=== PATIENT | female | born 1930 | race Caucasian/White ===

== ENCOUNTER 2017-02-21 05:46 | Day surgery (SDC) | payer MEDICARE, OTHER ==
[~2017-02-21 05:46] MED LIST: *CPAP; CARVEDILOL25 M1 PO; CPAP; ELIQUIS2.5 M1 PO; ENALAPRIL MALEA10 M1 PO; FEOSOL325 M1 PO; FISH OIL 11000 MG/CA PO; FOLIC ACID1 M1 PO; FOSAMAX70 M1 PO; FUROSEMIDE40 M2 PO; GABAPENTIN600 M2 PO; GLYBURIDE5 M1 PO; HYDROCODON-ACE1 EA16 PO; LIDODERM1 EACH TP; LINZESS145 MC1 PO; LOVASTATIN40 M2 PO; METFORMIN HCL500 M2 PO; METHOTREXATE2.5 M1 PO; NORCO 10-325 T1 EACH PO; NYSTATIN1 EA10 TP; ONGLYZA5 M1 PO; ORENCIA IV; OS-CAL 500+D31 EAC1 PO; PLAQUENIL200 M1 PO; PROZAC20 M3 PO; VITAMIN B12 PO; VITAMIN D31000 UNI4 PO; [UNRECOGNIZED DRUG - OTHER] PO
--- NOTE | 2017-02-21 18:50 | NUR ---
VIRTUAL CARE NOTE: PT. UP IN HER CHAIR, PLAYING CARDS WITH HER DAUGHTER. DENIES PAIN ATT HIS TIME. ENCOURAGED TO KEEP USING I.S. WHEN ABLE. ALSO INSTRUCTED TO CALL FOR STAFF WHEN NEED TO GET OUT OF BED OR CHAIR DUE TO SCD BEING CONNECTED. DENIES FURTHER NEEDS AT THIS TIME AND VOICES VERBAL UNDERSTANDING.
[2017-02-22] MEDS ORDERED: ACETAMINOPHEN650 MG PR (09:25)
[2017-02-22] MEDS ORDERED: TYLENOL EXTRA500 M1 PO (09:26)
[2017-02-22] MEDS ORDERED: MILK OF MAGNESIA PO (09:28)
== END 2017-02-22 11:25 ==
LOC: SRG 05:46 → SHSB 05:47 → ORW 09:53 → PACU 10:31 → 5WD 12:35
PROVIDERS: Hospitalist
PROC: 0HBU0ZZ Excision of Left Breast, Open Approach (ICD-10-PCS; principal; 2017-02-21)
PROC: 07B60ZX Excision of Left Axillary Lymphatic, Open Approach, Diagnostic (ICD-10-PCS; 2017-02-21)
DX: C50.212 Malignant neoplasm of upper-inner quadrant of left female breast (principal); C77.3 Secondary and unspecified malignant neoplasm of axilla and upper limb lymph nodes; I13.0 Hypertensive heart and chronic kidney disease with heart failure and stage 1 through stage 4 chronic kidney disease, or unspecified chronic kidney disease; E11.22 Type 2 diabetes mellitus with diabetic chronic kidney disease; N18.9 Chronic kidney disease, unspecified; I50.9 Heart failure, unspecified; E11.42 Type 2 diabetes mellitus with diabetic polyneuropathy; I25.10 Atherosclerotic heart disease of native coronary artery without angina pectoris; M06.9 Rheumatoid arthritis, unspecified; G47.30 Sleep apnea, unspecified; I27.2 Other secondary pulmonary hypertension; I42.9 Cardiomyopathy, unspecified; E78.2 Mixed hyperlipidemia; D64.9 Anemia, unspecified; K59.00 Constipation, unspecified; Z17.0 Estrogen receptor positive status [ER+]; Z79.01 Long term (current) use of anticoagulants; Z79.82 Long term (current) use of aspirin; Z79.84 Long term (current) use of oral hypoglycemic drugs; Z79.899 Other long term (current) drug therapy; Z85.42 Personal history of malignant neoplasm of other parts of uterus; Z92.21 Personal history of antineoplastic chemotherapy; Z80.3 Family history of malignant neoplasm of breast; Z80.41 Family history of malignant neoplasm of ovary; Z90.710 Acquired absence of both cervix and uterus; Z90.11 Acquired absence of right breast and nipple; Z90.89 Acquired absence of other organs; Z95.0 Presence of cardiac pacemaker; Z98.890 Other specified postprocedural states
CPT/HCPCS: A9520; J0360; J0690; J1170; J1650; J1815; J2250; J2765; J3010; Q9968